=== PATIENT | male | born 1965 | race Caucasian/White ===

== ENCOUNTER 2020-06-30 06:46 | Outpatient (CLI) | payer OTHER, BC, SELFPAY ==
--- NOTE | ~2020-06-30 | MR_ITS ---
EXAMINATION: MR shoulder LT wo con DATE: 06/30/2020 07:47 INDICATION: Left shoulder pain. TECHNIQUE: Magnetic resonance imaging (MRI) of the left shoulder was performed without intravenous co ntrast. Sequences included axial PD-weighted FS FSE, coronal oblique PD-weighted FS FSE and T2-weight ed FS FSE, and sagittal oblique T2-weighted FS FSE and T1-weighted FSE. COMPARISON: None. FINDINGS: Coracoacromial arch: The acromion undersurface is curved in morphology (type II). There is moderate acromioclavicular join t osteoarthritis. There is mild subacromial/subdeltoid bursitis. Rotator cuff: There is moderate supraspinatus and infraspinatus tendinopathy. Teres minor tendon is normal. There i s mild subscapularis tendinopathy. There is no asymmetric fatty atrophy of the rotator cuff muscle be llies. Biceps tendon and glenoid labrum: Biceps tendon is in bicipital groove. There is mild intra-articular biceps tendinopathy. There is deg eneration of the glenoid labrum without well-defined tear. Fluid: There is no glenohumeral joint effusion. Bones/cartilage: The glenoid cartilage is normal. Humeral head cartilage is normal. IMPRESSION: 1. Moderate rotator cuff tendinopathy. No tear. 2. Mild intra-articular biceps tendinopathy. 3. Mild subacromial/subdeltoid bursitis. 4. Moderate acromioclavicular joint osteoarthritis. Reviewed, dictated and finalized at location A.
== END 2020-06-30 06:47 | disposition home or self-care (01) ==
LOC: ANHIMG 06:56
PROVIDERS: PCP Family Medicine; Visit Provider Family Medicine
DX: M75.52 Bursitis of left shoulder (principal); M19.012 Primary osteoarthritis, left shoulder
CPT/HCPCS: 73221

== ENCOUNTER 2021-05-05 13:45 | Outpatient (CLI) | payer OTHER, SELFPAY ==
--- NOTE | ~2021-05-05 | XR_ITS ---
EXAMINATION: XR shoulder RT min 2V EXAM DATE: 05/05/2021 14:07 INDICATION: M25.511 - Pain in right shoulder, fall, initial encounter. TECHNIQUE: The following right shoulder projections obtained: frontal projection with internal rotati on, frontal projection with external rotation, Grashey, and axillary (4+ views). There is no prior s tudy for comparison. FINDINGS: No evidence of right shoulder rotator cuff calcific tendinosis. There is mild glenohumer al joint, mild acromioclavicular joint primary osteoarthritis. There are no acute fractures or disloc ations identified. There is no subcutaneous gas. The soft tissue is unremarkable. There are no ra diopaque foreign bodies. IMPRESSION: Mild right shoulder osteoarthritis. Reviewed, dictated and finalized at location B. [employer]
== END 2021-05-05 13:46 | disposition home or self-care (01) ==
LOC: ANHIMG 13:50
PROVIDERS: PCP Family Medicine; Visit Provider Family Medicine
DX: M19.011 Primary osteoarthritis, right shoulder (principal)
CPT/HCPCS: 73030

== ENCOUNTER 2022-01-03 08:00 | Outpatient (NON) | payer BC, SELFPAY | END 2022-01-03 08:01 | disposition home or self-care (01) | LOC: ANHLAB 01-04 13:27 | PROVIDERS: PCP Family Medicine; Visit Provider Nurse Practitioner | DX: L02.212 Cutaneous abscess of back [any part, except buttock and flank] (principal) | CPT/HCPCS: 87070; 87075; 87205 ==

== ENCOUNTER 2022-03-16 07:00 | Outpatient (NON) | payer BC, SELFPAY | END 2022-03-16 07:01 | disposition home or self-care (01) | LOC: ANHLAB 03-22 08:14 | PROVIDERS: PCP Family Medicine; Visit Provider Nurse Practitioner | DX: L72.0 Epidermal cyst (principal) | CPT/HCPCS: 88304 ==

== ENCOUNTER 2024-12-12 01:13 | Day surgery (SDC) | payer BC, SELFPAY ==
[2024-12-03 08:35] VITALS: BMI 40.2
[2024-12-12 11:46] VITALS: BP 152/88; PULSE 58; RESP 16; TEMP 36.2; O2SAT 97; BMI 39.0
--- NOTE | 2024-12-12 11:52 | WPDANESEPPF ---
Anes - Initial Pre Proc Eval Procedure: Operation Date: 12/12/24 13:00 Proposed Procedures p Screening Colonoscopy - Joel Mcgraw MD Date/Time: 12/12/24 11:52 Surgeon: Joel Mcgraw MD Pre Op Diagnosis: Personal history of colon polyps, unspecified Patient Data Age: 59 Gender: M Height: 1.8 m Weight: 127 kg Last Vital Signs Temp 36.2 C L 12/12/24 11:46 Pulse 58 L 12/12/24 11:46 Resp 16 12/12/24 11:46 BP 152/88 H 12/12/24 11:46 Pulse Ox 97 12/12/24 11:46 O2 Del Method Room Air 12/12/24 11:46 Allergies Allergy/AdvReac Type Severity Reaction Status Date / Time HILTON Inhibitors Allergy Unknown Unknown Verified 12/12/24 11:44 Home Medications ?Medication ?Instructions ?Recorded ?Confirmed ?Type lansoprazole 30 mg capsule,delayed 30 mg PO DAILY 04/02/19 12/12/24 History release (Prevacid) glucosamine 250 [id number]-ehvhg-hca 200 1 tablet PO DAILY 08/04/20 12/12/24 History mg-D3 1,500 mate-X-rybbe-herbs tablet multivit,calc,mins-folic 240 1 tablet PO DAILY 08/04/20 12/12/24 History mcg-vit K1 30 mcg-lycopene 300 mcg tablet (One-A-Day Men's Complete) tadalafil 20 mg tablet 20 mg PO DAILY PRN sexual activity 12/23/20 12/03/24 Rx #10 tabs metoprolol succinate 50 mg 50 mg PO DAILY #90 tabs 03/12/24 12/12/24 Rx tablet,extended release 24 hr verapamil 120 mg tablet,extended 120 mg PO DAILY #90 tabs 04/25/24 12/12/24 Rx release ibuprofen 800 mg tablet 800 mg PO TID PRN pain #90 tabs 06/10/24 12/03/24 Rx rosuvastatin 5 mg tablet 5 mg PO DAILY #30 tabs 11/18/24 12/12/24 Rx chlorthalidone 25 mg tablet See Rx Instructions .Route 12/04/24 12/12/24 Rx .COMPLEX #45 tabs irbesartan 300 mg tablet See Rx Instructions .Route 12/04/24 12/12/24 Rx .COMPLEX #90 tabs Patient hx anesthesia problems: none Family hx anesthesia problems: none Results Review: All pre-operative results and documents have been reviewed as part of the pre-operative evaluation. [facility] Past Medical History Medical History Obesity Venous stasis dermatitis Migraine, unspecified, not intractable, without status migrainosus Essential (primary) hypertension Chronic GERD Social History Social History Smoking packs per day: 1.0 Smoking cigarettes per day: 20.0 Years smoked: 11 Smoking pack-years: 11.00 Smoking status: Former smoker Tobacco type: cigarettes Second hand tobacco smoke exposure: Yes Smoking end date: 03/27/94 Alcohol intake: never Substance use: never Substance use type: does not use Living arrangements: with family Occupation/Education: occupation Additional occupation/education comments: [employer] Gender identity (if verbalized by the patient): Male Sexual Orientation (if Verbalized by the Patient): Straight or Heterosexual Spiritual care concerns: No Anes - Eval Final PreProcedure Day of Procedure 12/12/24 11:52 Patient weight: morbidly obese Heart: regular rate and rhythm Lungs: clear to auscultation Airway: Mallampati scale class II Neurological: alert and oriented Last oral intake: >/= 8 hours ASA classification: III Emergent: no Anesthetic plan: proceed Anesthesia type and monitoring: general GIVS and standard monitoring Results Review: All pre-operative results and documents have been reviewed as part of the pre-operative evaluation. Informed Consent: The patient's anesthetic plan and its attendant risks and benefits were discussed with the patient/family/POA. Questions were solicited and answers provided to the satisfaction of the patient/family/POA.
[2024-12-12] MEDS: LACTATED RINGERS 1,000 ML 150 ML IV CONT (11:55)
--- NOTE | 2024-12-12 12:02 | PM.HPGS ---
History of Present Illness History of Present Illness Consent: Risks, benefits, and alternatives have been discussed and questions answered. Patient agrees to proceed with procedure. Chief complaint: Personal history of colon polyps, unspecified Narrative: Karl Tompkins Sr. is a 59 year old male with colon polyp about 7 years ago Review of Systems Review of Systems: All systems reviewed & are unremarkable except as noted in HPI and below PMFSH Past Medical History Medical History (Updated 12/12/24 @ 12:02 by Joel Mcgraw MD) Colon polyp Obesity Venous stasis dermatitis Migraine, unspecified, not intractable, without status migrainosus Essential (primary) hypertension Chronic GERD Social History Social History Smoking packs per day: 1.0 Smoking cigarettes per day: 20.0 Years smoked: 11 Smoking pack-years: 11.00 Smoking status: Former smoker Tobacco type: cigarettes Second hand tobacco smoke exposure: Yes Smoking end date: 03/27/94 Alcohol intake: never Substance use: never Substance use type: does not use Living arrangements: with family Occupation/Education: occupation Additional occupation/education comments: [employer] Gender identity (if verbalized by the patient): Male Sexual Orientation (if Verbalized by the Patient): Straight or Heterosexual Spiritual care concerns: No Meds Home Medications and Allergies Home Medications ?Medication ?Instructions ?Recorded ?Confirmed ?Type lansoprazole 30 mg capsule,delayed 30 mg PO DAILY 04/02/19 12/12/24 History release (Prevacid) glucosamine 250 nz-gddag-hng 200 1 tablet PO DAILY 08/04/20 12/12/24 History mg-D3 1,500 zwqk-M-tygyw-herbs tablet multivit,calc,mins-folic 240 1 tablet PO DAILY 08/04/20 12/12/24 History mcg-vit K1 30 mcg-lycopene 300 mcg tablet (One-A-Day Men's Complete) tadalafil 20 mg tablet 20 mg PO DAILY PRN sexual activity 12/23/20 12/03/24 Rx #10 tabs metoprolol succinate 50 mg 50 mg PO DAILY #90 tabs 03/12/24 12/12/24 Rx tablet,extended release 24 hr verapamil 120 mg tablet,extended 120 mg PO DAILY #90 tabs 04/25/24 12/12/24 Rx release ibuprofen 800 mg tablet 800 mg PO TID PRN pain #90 tabs 06/10/24 12/03/24 Rx rosuvastatin 5 mg tablet 5 mg PO DAILY #30 tabs 11/18/24 12/12/24 Rx chlorthalidone 25 mg tablet See Rx Instructions .Route 12/04/24 12/12/24 Rx .COMPLEX #45 tabs irbesartan 300 mg tablet See Rx Instructions .Route 12/04/24 12/12/24 Rx .COMPLEX #90 tabs Allergies Allergy/AdvReac Type Severity Reaction Status Date / Time HILTON Inhibitors Allergy Unknown Unknown Verified 12/12/24 11:44 Vital Signs Vital Signs - 24 hr 12/12/24 11:46 Temperature 97.1 F L Pulse Rate 58 L Respiratory Rate 16 Blood Pressure 152/88 H Pulse Oximetry 97 Oxygen Delivery Room Air Exam Const: General: comfortable and no acute distress HENMT: Face/Nose/Sinus: Normal nares present Eyes: General: appearance normal, both eyes and all related structures Neck: Neck: no JVD Resp: Auscultation: clear to auscultation bilaterally Cardio: Rate: regular rate Rhythm: regular rhythm GI: Inspection: non-distended GI Palp: Yes Soft to palpation Skin: General skin exam: normal color Neuro: Speech: normal speech Extrem: General: normal to inspection Psych: Mental Status: mental status grossly normal Assessment and Plan Assessment and plan (1) Colon polyp: Code(s): K63.5 - Polyp of colon Status: Acute Assessment and Plan: colonoscopy
[2024-12-12 12:16] VITALS: BP 114/76; PULSE 60; RESP 18; O2SAT 96
[2024-12-12 12:26] VITALS: BP 126/76; PULSE 58; RESP 18; O2SAT 97
[2024-12-12 12:36] VITALS: BP 131/84; PULSE 62; RESP 18; O2SAT 98
== END 2024-12-12 12:47 | disposition home or self-care (01) ==
PROVIDERS: PCP Family Medicine; Referring Provider Family Medicine; Visit Provider Internal Medicine Gastroenterology
PROC: 0DJD8ZZ Inspection of Lower Intestinal Tract, Via Natural or Artificial Opening Endoscopic (ICD-10-PCS; CPT 45378; principal; 2024-12-12 13:00)
DX: Z12.11 Encounter for screening for malignant neoplasm of colon (principal); Z86.0100 Personal history of colon polyps, unspecified; Z87.891 Personal history of nicotine dependence; E66.01 Morbid (severe) obesity due to excess calories; Z68.39 Body mass index [BMI] 39.0-39.9, adult
CPT/HCPCS: 45378; J2003; J2704; J7120